=== PATIENT | female | born 1960 | race Caucasian/White ===

== ENCOUNTER 2017-08-03 07:50 | Day surgery (SDC) | payer OTHER ==
[~2017-08-03 07:50] MED LIST: SOD CHLORIDE 0.9% 1,000 ML IV
[2017-08-03] MEDS ORDERED: CEFAZOLIN 1 GM INJ (09:53)
[2017-08-03] MEDS ORDERED: PROPOFOL 20 ML (09:53)
[2017-08-03] MEDS ORDERED: FENTAnyl 50 MCG/ML VIAL ×2 (09:54→10:23)
[2017-08-03] MEDS ORDERED: MIDAZOLAM 1 MG/ML 2 ML INJ (09:54)
[2017-08-03] MEDS ORDERED: METOCLOPRAMIDE 10 MG INJ (09:54)
[2017-08-03] MEDS ORDERED: ONDANSETRON 4 MG INJ (09:54)
[2017-08-03] MEDS ORDERED: hydrALAzine 20 MG INJ IV (10:30)
[2017-08-03] MEDS ORDERED: HYDROmorphONE (0.2 MG/ML) 10ML SYG IV ×3 (10:30)
[2017-08-03] MEDS ORDERED: OXYCODONE/ACETAMINOPHEN (5/325) TAB PO ×2 (10:30)
[2017-08-03] MEDS ORDERED: LABETALOL HCL 20MG INJ IV (10:30)
[2017-08-03] MEDS ORDERED: DIPHENHYDRAMINE 50 MG INJ IV (10:30)
[2017-08-03] MEDS: BUPIVACAINE 0.25% (MPF) 30 ML INJ (10:36)
[2017-08-03] MEDS: HYDROCODONE/APAP (5/325) TAB PO (11:00)
[2017-08-03] MEDS: ONDANSETRON 4 MG INJ IV (11:22)
[2017-08-03] MEDS: MEPERIDINE 25 MG INJ IV (11:23)
== END 2017-08-03 12:55 | disposition home or self-care (01) ==
LOC: SDS 07:50
DX: N60.22 Fibroadenosis of left breast (principal); D24.2 Benign neoplasm of left breast; N60.12 Diffuse cystic mastopathy of left breast; E11.9 Type 2 diabetes mellitus without complications
CPT/HCPCS: 14001; 82962; 88304